=== PATIENT | male | born 2005 | race Two or more races ===

== ENCOUNTER 2025-06-03 18:46 | Emergency (ER) | payer BC, OTHER ==
[~2025-06-03] VITALS: Ht 182.9 cm; Wt 72.0 kg
--- NOTE | 2025-06-03 19:15 | ED.PDOC ---
History of Present Illness HPI Comments 19-year-old male who presents with history of intermittent, chest pain. Patient reports pain being localized to his left chest wall, that he describes as "soreness" and, occasionally, radiates to his left elbow and behind his right knee. Pain is a 3/10 in severity and is reported to have became constant, with occasional bouts of sharpness, over the past 5-6x days. He denies having any significant medical, surgical, or social history but does report a paternal family history of heart disease. Patient also admits to recent [address] trips and a visit to an amusement park. He denies having any shortness of breath, nausea, vomiting, fever, chills, or further associated symptoms. Chief Complaint: Chest Pain Time Seen by MD: 19:00 Reviewed Notes: Nurses Notes, Medications, Allergies Allergies: Coded Allergies: NO KNOWN ALLERGIES (Unverified , 06/03/25) Information Source: Patient Mode of Arrival: Ambulatory Severity: Moderate Timing: Months Duration: Intermittent Prehospital treatment: None Review of Systems: REVIEW OF SYSTEMS: General: No fever, no chills, or fatigue HEENT: No sore throat, no earache, no congestion, no neck pain. Cardiac: Left chest wall pain. No palpitations. Lungs: No shortness of breath, no cough. GI: No nausea, no vomiting, no diarrhea, no constipation, no abdominal pain : No dysuria, frequency, or urgency. No hematuria. Musculoskeletal: Left elbow and knee pain, no joint swelling, no extremity ed sebas. Skin: No rash, no itching. Neuro: No headache, no dizziness, no weakness Vital Signs Vital Signs Date Time Temp Pulse Resp B/P (MAP) Pulse Ox O2 Delivery O2 Flow Rate FiO2 06/03/25 19:14 71 06/03/25 18:50 98.2 16 115/85 (95 97 98.2 Physical Exam PHYSICAL EXAM: General: Awake, alert and oriented. No acute distress. Skin: Skin in warm, dry and intact. Appropriate color for ethnicity. HEENT: The head is normocephalic and atraumatic. Conjunctivae are clear without exudates or hemorrhage. Sclera is non-icteric. EOM are intact. No signs of nystagmus. Eyelids are normal in appearance without swelling or lesions. Oral mucosa is pink and moist Neck: The neck is supple with normal range of motion. No JVD. Cardiac: Heart rate and rhythm are normal. No murmurs, gallops, or rubs are auscultated. No chest wall tenderness Respiratory: No signs of respiratory distress. Lung sounds are clear in all lobes bilaterally without rales, rhonchi, or wheezes. : Upper and lower extremities are atraumatic in appearance without deformity or edema. Neurological: The patient is awake, alert and oriented to person, place, and time with normal speech. Speech is clear. There is no facial asymmetry. Psychiatric: Appropriate mood and affect. Good judgement and insight. Past Medical History PAST MEDICAL HISTORY: Denies Surgical History: Denies all surgeries Family History Family History: No family hx of Cancer, No family hx of DM, No family hx of HTN, No family hx ofKidney rohit, No family hx of Liver rohit, No family hx of Lung rohit, No family hx of Stroke, Family hx of heart rohit Social History Smoker: Non-Smoker Alcohol: Denies ETOH Use Drugs: Denies Drug Use Lives In: Home Was a procedure done? Was a procedure done?: No EKG EKG : Pulse Rate (adult): 71 [place]: Normal Cardiac Rhythm: NSR Block: None Hypertrophy: None ST: Normal Comments No STEMI Differential Dx Considerations may include: Differential diagnoses considered include acute ischemic coronary syndrome, aortic dissection, cardiac tamponade, mediastinitis, pulmonary embolus, pneumothorax, tension pneumothorax, esophageal rupture, coronary artery vasospasm, myocarditis, pericarditis, pneumonia, pulmonary edema, esophageal tear, pancreatitis, aortic stenosis, dilated cardiomyopathy, hypertrophic cardiomyopathy, mitral valve prolapse, malignancy, pleuritis, pneumomediastinum, primary pulmonary hypertension, cholecystitis, esophageal spasm, esophagus, gastritis, GERD, peptic ulcer disease, costochondritis, fibromyalgia, rib fracture, herpes zoster, radicular syndromes, thoracic outlet syndrome, somatization. X-Ray, Labs, Meds, VS Vital Signs Date Time Temp Pulse Resp B/P (MAP) Pulse Ox O2 Delivery O2 Flow Rate FiO2 06/03/25 19:14 71 06/03/25 18:58 71 06/03/25 18:50 98.2 77 16 115/85 (95) 97 98.2 Lab Test 06/03/25 19:14 Range/Units Troponin I High Sensitivity < 3 L </=54 ng/L [facility] [id number] [facility] [id number] Ph: [phone] DIAGNOSTIC IMAGING Diagnostic Imaging Report : [id number] Signed PATIENT: SHELIA AN ACCT: [id number] UNIT: [id number] : 2005 LOC: ER ROOM / BED: / AGE / SEX: 19 / M ADM STATUS: REG ER SERVICE [id number] ORDERING PHYSICIAN: CORRINE BISHOP MD PROCEDURE(s): CXR1 - CHEST XRAY 1 VIEW REASON: Chest pain ORDER NUMBER(s): [id number], ACCESSION NUMBER(s): [id number] CHEST RADIOGRAPH Indication: Chest pain Technique: Single frontal view of the chest was obtained COMPARISON: None FINDINGS: Lines and Tubes: None Lungs: Clear Pleura: No effusion. No pneumothorax. Cardiomediastinal contours: Unremarkable Bones: Unremarkable IMPRESSION: 1. No acute disease. ATED BY: RAZ QUEZADA MD DICTATED DATE/TIME: 06/03/251954 SIGNED BY: RAZ QUEZADA MD SIGNED DATE/TIME: 06/03/251954 CC: Time of 1ST Reevaluation: 19:30 Reevaluation 1ST: Unchanged Patient Education/Counseling: Need For Follow Up Family Education/Counseling: No Family Present SEPSIS Sepsis Screen Physician Orders Electrocardigram (06/03/25 19:01) Electrocardigram (06/03/25 22:01) Chest Xray 1 View (06/03/25 19:06) Vital Signs Date Time Temp Pulse Resp B/P (MAP) Pulse Ox O2 Delivery O2 Flow Rate FiO2 06/03/25 19:14 71 06/03/25 18:58 71 06/03/25 18:50 98.2 77 16 115/85 (95) 97 98.2 Departure 1 Departure Time of Disposition: 19:39 Impression: Primary Impression: Chest pain Disposition: 01 HOME / SELF CARE / HOMELESS Condition: Stable Additional Instructions: ED DISCHARGE INSTRUCTIONS Instructions: Please read all instructions provided in this packet carefully. Although you have been discharged from the Emergency Department, this does not mean that you have a "clean bill of health". No definitive diagnosis for your symptoms has been made today. It is possible that you are in the process of deve loping a serious illness. This is why you must return to the ED without fail if any new or worsening symptoms (especially if your symptoms include chest pain, trouble breathing, abdominal pain, fever, headache, confusion, trouble seeing, or trouble walking) It is also very important that you see a primary care provider (PCP) within the next 1-3 days to follow up. If you are unable to get an appointment, return to the ED for re-evaluation. CHEST PAIN EDUCATION There are many things that can cause chest pain. Some are not serious and will get better on their own in a few days. But some kinds of chest pain need more testing and treatment. Your doctor may have recommended a follow-up visit in the next few days. If you are not getting better, you may need more tests or treatment. Even though your doctor has released you, you still need to watch for any problems. The doctor carefully checked you, but sometimes problems can develop later. If you have new symptoms or if your symptoms do not get better, get m edical care right away. If you have worse or different chest pain or pressure that lasts more than 5 minutes or you passed out (lost consciousness), call 911 or seek other emergency help right away. A medical visit is only one step in your treatment. Even if you feel better, you still need to do what your doctor recommends, such as going to all suggested follow-up appointments and taking medicines exactly as directed. This will help you recover and help prevent future problems. How can you care for yourself at home? Rest until you feel better. Take your medicine exactly as prescribed. Call your doctor if you think you are having a problem with your medicine. Do not drive after taking a prescription pain medicine. When should you call for help? Call 911 if: You passed out (lost consciousness). You have severe difficulty breathing. You have symptoms of a heart attack. These may include: Chest pain or pressure, or a strange feeling in your chest. Sweating. Shortness of breath. Nausea or vomiting. Pain, pressure, or a strange feeling in your back, neck, jaw, or upper belly or in one or both shoulders or arms. Lightheadedness or sudden weakness. A fast or irregular heartbeat. After you call 911, the bead forming machine set up operator may tell you to chew 1 adult-strength or 2 to 4 low-dose aspirin. Wait for an ambulance. Do not try to drive yourself. Call your doctor now or seek immediate medical care if: You have any trouble breathing. You have new or different chest pain. You are dizzy or lightheaded, or you feel like you may faint. Watch closely for changes in your health, and be sure to contact your doctor if you do not get better as expected. Current as of: June 20, 2024 Author: Cubby Staff? Comments 19-year-old male with ongoing chest pain for the past 5 days Patient has no risk factors, no family history of coronary artery disease, no risk factor for PE or family history of VTE EKG negative for signs of ischemia. High sensitivity troponin negative. CXR shows no acute process. Presentation not suggestive of acute coronary syndrome, pulmonary embolism or aortic dissection. Patient improved at time of discharge. Patient has not been hypoxic, in respiratory distress or dyspneic during the ED observation. Patient able to ambulate without difficulty. Patient felt stable for discharge to follow up with PCP promptly. Patient advised to return to the ED with any new, worsening or concerning symptoms or inability to follow up with PCP. I reviewed the following notes from the pt's past medical encounters: N/A The following tests were ordered, and results were reviewed by me: (See diagnostic results section) The following test were independently interpreted by me: EKG, chest x-ray-no acute disease Additional information was gathered from interviewing the following independent historians: N/A I reviewed and agreed with the following test results read by other providers: Chest x-ray I discussed treatments and results with patient Decision regarding hospitalization or escalation of hospital level of care: Risks and benefits of admission for further treatment of patient's condition was considered however due to patient's stable condition patient will be discharged to follow up closely or return to care for worsening of condition or inability to follow up. Critical Care Note Critical Care Time?: No Stability Stability form required: No Heart Score Heart Score: Heart Score Response (Comments) Value History N/A 0 EKG N/A 0 Age N/A 0 Risk Factors N/A 0 Troponin N/A 0 Total 0 I personally scribed for CORRINE BISHOP MD ([email or web address]) on 06/03/25 at 19:14. Electronically submitted by Jaime Slade ([email or web address]). I personally scribed for CORRINE BISHOP MD ([email or web address]) on 06/03/25 at 20:09. Electronically submitted by Jaime Slade ([email or web address]). CORRINE BISHOP MD Jun 03, 2025 19:14
--- NOTE | 2025-06-03 19:24 | ECG ---
[facility] Test Date: 2025-06-03 Test Time: 18:58:08 Pat Name: SHELIA AN Department: er Room: Gender: M Office Inspector: amanuel : 2005 Requested By: CORRINE BISHOP Order Number: [id number] Reading MD: Nitish Vázquez Measurements Intervals [place] Rate: 71 P: 82 CT: 161 QRS: 97 QRSD: 89 T: 53 QT: 394 QTc: 429 Interpretive Statements Sinus rhythm Probable left atrial enlargement Borderline right axis deviation Electronically Signed On 06-03-2025 19:39:43 PDT by Nitish Vázquez Please click the below link to view image of tracing.
--- NOTE | 2025-06-03 19:58 | DVH ---
CHEST RADIOGRAPH Indication: Chest pain Technique: Single frontal view of the chest was obtained COMPARISON: None FINDINGS: Lines and Tubes: None Lungs: Clear Pleura: No effusion. No pneumothorax. Cardiomediastinal contours: Unremarkable Bones: Unremarkable IMPRESSION: 1. No acute disease.
--- NOTE | 2025-06-03 20:07 | ECG ---
[facility] Test Date: 2025-06-03 Test Time: 20:05:59 Pat Name: SHELIA AN Department: ED Room: Gender: M Superintendent Menagerie: NIKIA : 2005 Requested By: CORRINE BISHOP Order Number: [id number] Reading MD: Measurements Intervals [place] Rate: 60 P: 85 [place]: 149 QRS: 105 QRSD: 92 T: 51 QT: 404 QTc: 404 Interpretive Statements Sinus rhythm Consider right ventricular hypertrophy Please click the below link to view image of tracing.
[2025-06-03 21:05] VITALS: BP 122/68; PULSE 56; RESP 20; TEMP 98.3; O2SAT 98
== END 2025-06-03 21:08 | disposition home or self-care (01) ==
LOC: ER 18:46
DX: R07.89 Other chest pain (principal); Z79.899 Other long term (current) drug therapy
CPT/HCPCS: 36415; 71045; 84484; 93005